=== PATIENT | male | born 1960 | race Caucasian/White ===

== ENCOUNTER 2023-12-14 18:28 | Emergency (ER) | payer BC ==
[~2023-12-14] VITALS: Ht 167.6 cm; Wt 104.3 kg
[2023-12-14 18:30] VITALS: BP_SYST 153; PULSE 90; RESP 18; TEMP 98.1; O2SAT 98
[2023-12-14] MEDS: KETOROLAC TROMETHAMINE 30 MG VIAL IVP ONE (19:47)
[2023-12-14] MEDS: NACL 0.9% 1,000 ML IV ONE (19:48)
[2023-12-14 19:50] LABS: BILIRUBIN,URINE NEGATIVE (NEGATIVE); BLOOD, URINE 2+ (NEGATIVE); CLARITY/URINE CLEAR (CLEAR); COLOR,URINE YELLOW (YELLOW); GLUCOSE,URINE NEGATIVE (NEGATIVE); KETONES,URINE NEGATIVE (NEGATIVE); LEUKOCYTE ESTERASE ,URINE NEGATIVE (NEGATIVE); NITRITE, URINE NEGATIVE (NEGATIVE); PROTEIN URINE NEGATIVE (NEGATIVE); UROBILINOGEN,URINE 0.2 (0.2-1.0)
[2023-12-14 19:50] LABS: BASOPHILS % (AUTO) 0.4 % (0.0-2.0); EOSINOPHILS # (AUTO) 0.2 K/uL (0.0-0.4); EOSINOPHILS % (AUTO) 1.9 % (0.0-4.0); HEMATOCRIT 47.2 % (36-54); HEMOGLOBIN 16.2 g/dL (14.0-18.0); LYMPHOCYTES # (AUTO) 2.6 K/uL (1.0-5.5); LYMPHOCYTES % (AUTO) 24.8 % (20.5-51.5); MEAN CORPUSCULAR HEMOGLOBIN 30 pg (27-31); MEAN CORPUSCULAR HGB CONC 34 % (32-36); MEAN CORPUSCULAR VOLUME 88 fL (79.0-98.0); MONOCYTES % (AUTO) 9.2 % (1.7-9.3); NEUTROPHILS # (AUTO) 6.6 K/uL (1.8-7.7); NEUTROPHILS % (AUTO) 63.7 % (40.0-70.0); PLATELET COUNT (AUTO) 228 K/uL (130-430); RED BLOOD CELL COUNT(AUTO) 5.36 MIL/uL (4.2-6.2); WHITE BLOOD COUNT (AUTO) 10.3 K/uL (4.8-10.8)
[2023-12-14 20:01] LABS: CALCIUM 8.8 mg/dL (8.4-11.0); CREATININE 1.26 mg/dL (0.55-1.30); POTASSIUM 4.4 mmol/L (3.5-5.1)
[2023-12-14 20:04] LABS: BACTERIA,URINE RARE /HPF (None Seen); MUCUS,URINE None Seen /LPF (None Seen); RBC,URINE 0-3 /HPF (0-3); WBC,URINE 0-3 /HPF (0-3)
[2023-12-14] MEDS ORDERED: IBUP-1969 PO (20:45)
[2023-12-14] MEDS ORDERED: HYDR-3917 PO (20:45)
[2023-12-14] MEDS ORDERED: TAMS-11 PO (20:45)
[2023-12-14 21:05] VITALS: BP_SYST 146; PULSE 74; RESP 20; TEMP 98; O2SAT 98
== END 2023-12-14 21:04 | disposition home or self-care (01) ==
LOC: SED 18:28 → EDSEX 18:28 → SED 21:04
DX: N20.0 Calculus of kidney (principal)
CPT/HCPCS: 99285; 74176; 96374; 96361; 80048; 81000; 81001; 85025; 36415; 81015; J1885; J7030